=== PATIENT | male | born 1975 | race Caucasian/White ===

== ENCOUNTER 2021-01-24 21:14 | Emergency (ER) | payer BC, OTHER ==
[~2021-01-24] VITALS: Ht 190.5 cm; Wt 74.8 kg
[2021-01-24 23:04] VITALS: BP 128/71
[2021-01-24] MEDS ORDERED: NITR100C6 PO (23:15)
[2021-01-24] MEDS ORDERED: CEPH500T PO (23:15)
--- NOTE | 2021-01-24 23:26 | NUR ---
Patient discharged to home in stable condition. Written and verbal after care instructions given. Patient verbalizes understanding of instruction. rx GIVEN
== END 2021-01-24 23:27 | disposition home or self-care (01) ==
LOC: ER 21:20
DX: K61.0 Anal abscess (principal)